=== PATIENT | female | born 1985 | race American Indian/Alaskan Native ===

== ENCOUNTER 2017-11-08 13:33 | Emergency (ER) | payer SELFPAY ==
[2017-11-08] MEDS ORDERED: Lidocaine 2% Inj (20ml) INFIL ONE (15:13)
--- NOTE | 2017-11-08 15:17 | C.PDOC ---
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 Patient denies hand pain, deformity, weakness, sensory or vascular deficits to injured finger. Ambulate to Ed for evaluation. Time Seen by Provider: 11/08/17 15:06 Chief Complaint (Nursing): Abnormal Skin Integrity History Per: Patient History/Exam Limitations: no limitations Onset/Duration Of Symptoms: Sudden Onset (TRIPE FINISHER) Past Medical History Reviewed: Historical Data, Nursing Documentation, Vital Signs Vital Signs: Last Vital Signs Temp 98.0 F 11/08/17 16:46 Pulse 88 11/08/17 16:46 Resp 16 11/08/17 16:46 BP 110/65 11/08/17 16:46 Pulse Ox 100 11/08/17 16:46 - Medical History PMH: No Chronic Diseases Family History: States: No Known Family Hx - Social History Hx Alcohol Use: No Hx Substance Use: No - Immunization History Hx Tetanus Toxoid Vaccination: Yes (2015) Hx Influenza Vaccination: No Review Of Systems Except As Marked, All Systems Reviewed And Found Negative. Musculoskeletal: Negative for: Arm Pain, Hand Pain Skin: Positive for: Other ((+) laceration to the left thumb) Neurological: Negative for: Weakness, Numbness Physical Exam - Physical Exam Appears: Well, Non-toxic, No Acute Distress Skin: Normal Color, Warm, Other ((+)2CM LACERATION TO PALMAR ASPECT LEFT 1ST PROXIMAL PHALANX. NO BLEEDING, NO WOUND FB NOTED.) Extremity: Normal ROM (OF LEFT HAND, NO NEUROVASCULAR DEFICITS. NO TENDON INJURY TO LEFT 1ST FINGER.), Tenderness (LEFT THUMB), Capillary Refill (LESS THAN 2SEC TO LEFT THUMB), No Deformity, No Swelling Neurological/Psych: Oriented x3, Normal Speech, Normal Motor, Normal Sensation, Normal Reflexes ED Course And Treatment O2 Sat by Pulse Oximetry: 96 (RA) Pulse Ox Interpretation: Normal Progress Note: Pt was offered to close laceration with sutures. Pt was unable tolerate " look at the needle", refused suture closure. Wound over Left thumb was cleaned and closed with skin adhesives. On re-eval, Left hand: FAROM of left thumb, no neurovascular deficits. No injury to tendon or ligament noted. Pt was advised on wound care. Ref. to F/u with PMD in 2-3 days for re-eavl. return if any new changes. Laceration - Laceration Repair Left Thumb Wound Length (In cm): 2 Description Of Wound: Linear Wound Cleansed With: Sterile Saline Wound Examination: Irrigated With Saline, No FB With Wound Exploration, No Tendon Injury With Wound Exploration Wound Closure: Skin Glue Wound Complexity: Simple Disposition Counseled Patient/Family Regarding: Diagnosis, Need For Followup - Disposition Referrals: [facility] [Outside] Disposition: HOME/ ROUTINE Disposition Time: 15:35 Condition: STABLE Additional Instructions: AVOID EXPOSURE TO WATER FOR 3-4 DAYS LIGHT DUTY TO lEFT THUMB FOLLOW UP WITH PMD IN 2-3 DAYS FOR RE0-EVALUATION. RETURN TO ED IF ANY WORSENING OR NEW CHANGES,. 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 - Scribe Statement The provider has reviewed the documentation as recorded by the Scribe Zayda Golden All medical record entries made by the Scribe were at my direction and personally dictated by me. I have reviewed the chart and agree that the record accurately reflects my personal performance of the history, physical exam, medical decision making, and the department course for this patient. I have also personally directed, reviewed, and agree with the discharge instructions and disposition.
[2017-11-08] MEDS ORDERED: Lidocaine 2% Inj (20ml) ONE (15:20)
[2017-11-08 16:47] VITALS: BP 110/65; PULSE 88; RESP 16; TEMP 98
[2017-11-08 17:05] VITALS: O2SAT 96
== END 2017-11-08 16:50 | disposition home or self-care (01) ==
LOC: C.ER 13:33
DX: S61.012A Laceration without foreign body of left thumb without damage to nail, initial encounter (principal); W26.0XXA Contact with knife, initial encounter

== ENCOUNTER 2018-03-02 19:51 | Emergency (ER) | payer SELFPAY ==
[2018-03-02 19:57] VITALS: BP 104/69; PULSE 90; RESP 18; TEMP 98.3; O2SAT 98
--- NOTE | 2018-03-02 20:46 | C.PDOC ---
History Of Present Illness 32 y/o female presents to the ED with complaints of sore throat and congestion for the past few days. Patient has had similar symptoms in the past with seasonal changes. States she tried taking Advil OTC and Benadryl with no improvement. No associated cough, SOB, or fevers. Time Seen by Provider: 03/02/18 20:00 Chief Complaint (Nursing): ENT Problem History Per: Patient History/Exam Limitations: None Onset/Duration Of Symptoms: Days Current Symptoms Are (Timing): Still Present Past Medical History Reviewed: Historical Data, Nursing Documentation, Vital Signs Vital Signs: Last Vital Signs Temp 98.3 F 03/02/18 19:54 Pulse 90 03/02/18 19:54 Resp 18 03/02/18 19:54 BP 104/69 03/02/18 19:57 Pulse Ox 98 03/02/18 21:47 Surgical History: No Surg Hx Family History: States: No Known Family Hx - Social History Hx Tobacco Use: No Hx Alcohol Use: No Hx Substance Use: No - Immunization History Hx Tetanus Toxoid Vaccination: Yes (2016) Hx Influenza Vaccination: No Review Of Systems Except As Marked, All Systems Reviewed And Found Negative. Constitutional: Negative for: Fever, Chills ENT: Positive for: Nose Congestion, Throat Pain Respiratory: Negative for: Cough, Shortness of Breath Physical Exam - Physical Exam Appears: Non-toxic, No Acute Distress Skin: Normal Color, Warm, Dry Head: Atraumatic, Normacephalic Eye(s): bilateral: Normal Inspection, PERRL, EOMI Ear(s): Bilateral: Normal Nose: Discharge (mild nasal congestion) Oral Mucosa: Moist Throat: Erythema (mild pharyngeal erythema), No Exudate, Other (Normal voice) Neck: Normal ROM, Supple Lymphatic: No Adenopathy Cardiovascular: Rhythm Regular, No Murmur Respiratory: Normal Breath Sounds, No Accessory Muscle Use, No Rales, No Rhonchi , No Wheezing, Other (Speaking in full sentences) Extremity: Bilateral: Atraumatic, Normal Color And Temperature, Normal ROM Neurological/Psych: Oriented x3, Normal Speech ED Course And Treatment O2 Sat by Pulse Oximetry: 98 (RA) Pulse Ox Interpretation: Normal Progress Note: Patient is medically stable. Counseled regarding diagnosis and treatment plan. Will d/c home with rx for Amoxicillin, Marita, and Flonase. Disposition Counseled Patient/Family Regarding: Studies Performed, Diagnosis, Rx Given - Disposition Disposition: HOME/ ROUTINE Disposition Time: 20:42 Condition: STABLE Additional Instructions: Follow up with PMD within 1-2 days. Return to ED if feel worse. 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 - Scribe Statement The provider has reviewed the documentation as recorded by the Scribe (Katherin Murdock) All medical record entries made by the Scribe were at my direction and personally dictated by me. I have reviewed the chart and agree that the record accurately reflects my personal performance of the history, physical exam, medical decision making, and the department course for this patient. I have also personally directed, reviewed, and agree with the discharge instructions and disposition.
== END 2018-03-02 20:56 | disposition home or self-care (01) ==
LOC: C.ER 19:51
DX: J02.9 Acute pharyngitis, unspecified (principal); J30.2 Other seasonal allergic rhinitis